=== PATIENT | male | born 1970 | race Caucasian/White ===

== ENCOUNTER 2018-04-28 15:55 | Observation (INO) | payer SELFPAY ==
[2018-04-28] MEDS ORDERED: CLINDAMYCIN 900 MG/D5W RTU 900 MG/50 ML RTUPB IV ONE (18:57)
[2018-04-28] MEDS ORDERED: HYDROMORPHONE HCL INJ/PF 2 MG/ML AMPULE SUBCUT ONE ×2 (18:58→20:02)
[2018-04-28] MEDS ORDERED: ONDANSETRON 4 MG TAB.RAPDIS PO ONE (18:58)
[2018-04-28] MEDS ORDERED: LIDOCAINE 1% INJ (10 MG/ML) 10 ML MDV INJ ONE ×2 (19:02→22:56)
--- NOTE | 2018-04-28 19:03 | ER Document Report ---
ED General - General Mode of Arrival: Ambulatory Information source: Patient TRAVEL OUTSIDE OF THE [place] IN LAST 30 DAYS: No - HPI Patient complains to provider of: Dental pain, jaw swelling Onset: Yesterday Onset/Duration: Gradual, Persistent Quality of pain: Sharp, Stabbing Severity: Severe Pain Level: 5 Associated symptoms: None Exacerbated by: Denies Relieved by: Denies Similar symptoms previously: No Recently seen / treated by doctor: No <JOSÉ LUIS HILL - Last Filed: 04/28/18 23:59> <SIDDHARTH REED - Last Filed: 04/29/18 00:08> - General Chief Complaint: abcess Stated Complaint: TOOTH PAIN Time Seen by Provider: 04/28/18 18:54 - HPI Notes: 47-year-old male coming in today with dental infection and right jaw swelling. Started yesterday with pain in the right lower jaw and is progressed quickly. Patient was given a prescription for clindamycin on the day of onset. Was recently prescribed Flagyl as well. Hydrocodone/APAP combination medication prescribed. Patient here because the swelling and the pain is intolerable. He is not having any trouble tolerating his own secretions or swallowing (JOSÉ LUIS HILL) - Related Data Allergies/Adverse Reactions: No Known Allergies Allergy (Unverified 04/28/18 15:58) Past Medical History - General Information source: Patient - Social History Smoking Status: Current Every Day Smoker Chew tobacco use (# tins/day): No Frequency of alcohol use: None Drug Abuse: None Family History: Reviewed & Not Pertinent Patient has suicidal ideation: No Patient has homicidal ideation: No Renal/ Medical History: Denies: Hx Peritoneal Dialysis Past Surgical History: Reports: Hx Orthopedic Surgery - l knee <JOSÉ LUIS HILL - Last Filed: 04/28/18 23:59> Review of Systems <JOSÉ LUIS HILL - Last Filed: 04/28/18 23:59> - Review of Systems Notes: Constitutional: No fevers. No chills. EENT: No eye redness. No eye pain. No ear pain. No sore throat. Positive for right lower dental pain and right lower jaw swelling Cardiovascular: No chest pain. No palpitations. Respiratory: No cough. No shortness of breath. No respiratory distress. Gastrointestinal: No abdominal pain. No nausea, vomiting, or diarrhea. Genitourinary: Atraumatic. No lesions. No pain. No discharge. Musculoskeletal: Atraumatic. No swelling. No deformities. Skin: No rash or lesions. Lymphatic: No swollen lymph nodes. Neurologic: No headache. No syncope. Psychiatric: No suicidal or homicidal ideation. (JOSÉ LUIS HILL) Physical Exam <JOSÉ LUIS HILL - Last Filed: 04/28/18 23:59> - Vital signs Vitals: Temp Pulse Resp BP Pulse Ox 98.8 F 67 16 150/84 H 96 04/28/18 16:05 04/28/18 16:05 04/28/18 16:05 04/28/18 16:05 04/28/18 16:05 - Notes Notes: Right lower second molar severely decayed. Visible right lower jaw swelling. Question possible fluctuant abscess to the gingiva of the right lower jaw. No trismus. No drooling. No submandibular or sublingual swelling. No dysphonia dyspnea or dysphagia (JOSÉ LUIS HILL) Course - Laboratory Result Diagrams: 04/28/18 20:15 04/28/18 20:15 - Consults dr galarza-hospitalist Time consulted: 23:59 Consulted provider: will see as inpatient - admit to [facility] for dr lala -oral surgery Time consulted: 23:30 Consulted provider: other - dr lala is available to hospitalist for consult if needed <JOSÉ LUIS HILL - Last Filed: 04/28/18 23:59> - Laboratory Result Diagrams: 04/28/18 20:15 04/28/18 20:15 <SIDDHARTH REED - Last Filed: 04/29/18 00:08> - Re-evaluation Re-evalutation: 04/28/18 19:05 I will attempt to incise and drain the abscess. IV clindamycin is being ordered as well as subcutaneous Dilaudid for pain. 04/28/18 20:05 There may have been a small amount of drainage from the incision and drainage p rocedure. All in all, the patient is complaining that the swelling is crossing from the right side of the neck to the left. Given these findings I will go ahead and get lab work and a CT to evaluate for evolving cellulitis. (JOSÉ LUIS HILL) 04/29/18 00:07 I did personally see and examine this patient in conjunction with José Luis Hill the PA who was taking care of this patient with right-sided facial swelling for the past 2 days.. I also do not visualize any discrete abscess after his incision and drainage. Patient does have significant swelling, there is a concern that if the swelling should continue to increase that there might be airway compromise. Patient was discussed with the nurse from the oral surgery practice who agrees that there physicians will be available for consultation as an inpatient if necessary. I agree with admitting this patient to the hosp italist for IV antibiotics at this time. Physical examination does not reveal any pain or tenderness or swelling to the floor of the mouth, no evidence of Taz's angina. (SIDDHARTH REED) - Vital Signs Vital signs: Temp Pulse Resp BP Pulse Ox 98.8 F 67 16 150/84 H 96 04/28/18 16:05 04/28/18 16:05 04/28/18 16:05 04/28/18 16:05 04/28/18 16:05 - Laboratory Laboratory results interpreted by me: 04/28/18 20:15 WBC 14.3 H Lymphocytes % 11.8 L Absolute Neutrophils 10.9 H - Consults [facility] for dr lala -oral surgery Reason for consultation: 04/29/18 00:00 facial swelling possibly odontogenic (JOSÉ LUIS HILL) Procedures - Incision and Drainage Right Lower Face Time completed: 20:04 Type: Simple, Single Anesthetic type: 1% Lidocaine mL's of anesthetic: 4 Blade size: 11 Incision Method: Incision made by scalpel Amount/type of drainage: 3 CC BLOODY/CLOUDY <JOSÉ LUIS HILL - Last Filed: 04/28/18 23:59> - Additional Procedures Inferior alveolar block Additional Procedures: Other - Inferior alveolar block <SIDDHARTH REED - Last Filed: 04/29/18 00:08> - Additional Procedures Inferior alveolar block Notes: 04/29/18 00:06 Landmarks were palpated, right-sided inferior alveolar block was performed using intraoral approach, a 25-gauge inch and a half long needle using a mixture of 1.5 mL's of 1% lidocaine and 1.5 mL of 0.5% bupivacaine were infiltrated without significant pain or any difficulty. No complications. Good relief of pain. (SIDDHARTH REED) Discharge - Discharge Admitting Provider: Hospitalist Unit Admitted: Medical Floor <JOSÉ LUIS HILL - Last Filed: 04/28/18 23:59> <SIDDHARTH REED - Last Filed: 04/29/18 00:08> - Discharge Clinical Impression: Facial swelling, Facial cellulitis Condition: Good Disposition: ADMITTED OBSERVATION
[2018-04-28 20:24] LABS: ABSOLUTE BASOPHILS # (AUTO) 0.1 10^3/uL (0.0-0.2); ABSOLUTE EOSINOPHILS # (AUTO) 0.3 10^3/uL (0.0-0.6); ABSOLUTE LYMPHOCYTES (AUTO) 1.7 10^3/uL (0.5-4.7); ABSOLUTE MONOCYTES (AUTO) 1.3 10^3/uL (0.1-1.4); ABSOLUTE NEUT (AUTO) 10.9 10^3/uL (1.7-8.2); BASOPHILS % (AUTO) 0.9 % (0-2); HEMATOCRIT 43.5 % (37.9-51.0); HEMOGLOBIN 14.9 g/dL (13.5-17.0); LYMPHOCYTES % (AUTO) 11.8 % (13-45); MEAN CORPUSCULAR HEMOGLOBIN 30.8 pg (27.0-33.4); MEAN CORPUSCULAR HGB CONC 34.4 g/dL (32.0-36.0); MEAN CORPUSCULAR VOLUME 90 fl (80-97); MONOCYTES % (AUTO) 9.1 % (3-13); PLATELET COUNT 258 10^3/uL (150-450); RED BLOOD COUNT 4.85 10^6/uL (4.35-5.55); RED CELL DISTRIBUTION WIDTH 13.5 % (11.5-14.0); SEGMENTED NEUTROPHILS % (AUTO) 76.2 % (42-78); TOTAL CELLS COUNTED % (AUTO) 100 %; WHITE BLOOD COUNT 14.3 10^3/uL (4.0-10.5)
--- NOTE | 2018-04-28 21:09 | RADIOLOGY REPORT (SQ) ---
CT NECK CHEST WITH IV CONTRAST HISTORY: Right-sided jaw swelling. COMPARISON: None. TECHNIQUE: CT scan of the neck with IV contrast. This exam was performed according to our departmental dose-optimization program, which includes automated exposure control, adjustment of the mA and/or kV according to patient size and/or use of iterative reconstruction technique. FINDINGS: There is diffuse subcutaneous edema overlying the right lower jaw. No definite focal fluid collection or abscess identified. There is surrounding prominent submental and right cervical chain lymph nodes, likely reactive. There is no cortical erosion or periosteal reaction to suggest acute osteomyelitis. No radiopaque foreign body is identified. The nasopharynx, oropharynx and hypopharynx are normal. No cervical mass or collection is seen. No aerodigestive tract mass is identified. The parotid and submandibular glands are normal. There are multiple subcentimeter hypodense nodules in the left thyroid lobe. The paranasal sinuses and mastoid air cells are clear. The visualized lungs are clear with emphysematous changes at the lung apices. IMPRESSION: 1. Diffuse swelling overlying the right lower jaw with reactive adenopathy, which may represent cellulitis. 2. No abscess or fluid collection. 3. No evidence of acute osteomyelitis.
[2018-04-28 21:19] LABS: ANION GAP 11 (5-19); BLOOD UREA NITROGEN 8 mg/dL (7-20); CALCIUM 9.5 mg/dL (8.4-10.2); CARBON DIOXIDE 26 mmol/L (22-30); CHLORIDE 102 mmol/L (98-107); GLUCOSE 100 mg/dL (75-110); POTASSIUM 4.7 mmol/L (3.6-5.0); SODIUM 138.8 mmol/L (137-145)
[2018-04-28] MEDS ORDERED: BUPIVACAINE HCL 0.5 % INJ/PF 30 ML SDV INJ ONE (22:56)
[2018-04-28] MEDS ORDERED: ACETAMINOPHEN 325 MG TABLET PO PRN (23:59)
[2018-04-28] MEDS ORDERED: IPRATROPIUM/ALBUTEROL 0.5-2.5 MG/3 ML AMPUL NEB PRN (23:59)
[2018-04-29] MEDS ORDERED: KETOROLAC TROMETHAMINE INJ/PF 30 MG/1 ML SDV IV ONE (00:45)
[2018-04-29] MEDS ORDERED: DEXAMETHASONE SOD PHOS INJ 10 MG/1 ML VIAL IV ONE (00:45)
[2018-04-29] MEDS ORDERED: NICOTINE 14 MG/24 HR PATCH.TD24 TD PRN (01:44)
[2018-04-29 03:04] LABS: HEMATOCRIT 43.8 % (37.9-51.0); HEMOGLOBIN 15.2 g/dL (13.5-17.0); MEAN CORPUSCULAR HEMOGLOBIN 30.9 pg (27.0-33.4); MEAN CORPUSCULAR HGB CONC 34.6 g/dL (32.0-36.0); MEAN CORPUSCULAR VOLUME 89 fl (80-97); PLATELET COUNT 235 10^3/uL (150-450); RED CELL DISTRIBUTION WIDTH 13.7 % (11.5-14.0); WHITE BLOOD COUNT 13.1 10^3/uL (4.0-10.5)
[2018-04-29 03:46] LABS: ABSOLUTE LYMPHOCYTES# (MANUAL) 0.7 10^3/uL (0.5-4.7); ABSOLUTE MONOCYTES # (MANUAL) 0.4 10^3/uL (0.1-1.4); ABSOLUTE NEUTROPHILS# (MANUAL) 12.1 10^3/uL (1.7-8.2); BASOPHILS % (MANUAL) 0 % (0-2); EOSINOPHILS % (MANUAL) 0 % (0-6); LYMPHOCYTES % (MANUAL) 5 % (13-45); MONOCYTES % (MANUAL) 3 % (3-13); PLATELET COMMENT ADEQUATE; RBC MORPHOLOGY COMMENT NORMO-CYTIC/CHROMIC; SEGMENTED NEUTROPHILS % (MAN) 92 % (42-78); TOTAL CELLS COUNTED 100; TOXIC GRANULATION SLIGHT; TOXIC VACUOLATION PRESENT
[2018-04-29] MEDS: CLINDAMYCIN 900 MG/D5W RTU 900 MG/50 ML RTUPB IV SCH ×3 (05:58→21:18)
[2018-04-29] MEDS: HEPARIN SOD (PORCINE) 5,000 UNIT/ML 1 ML SYRINGE SUBCUT SCH ×3 (05:58→21:18)
--- NOTE | 2018-04-29 06:03 | PDOC H&P ---
History of Present Illness Admission Date/PCP: 04/29/18 00:11 Patient complains of: Right-sided jaw pain and swelling History of Present Illness: TOOTIE SINGH is a 48 year old male with a past medical history of tobacco, COPD and chronic bronchitis. Presents with 48 hours of right-sided mandibular jaw pain and swelling prompting him to seek evaluation with his dentist who prescribed clindamycin and improved after 24 hours received a prescription for Flagyl and with the persistent worsening he is prompted to seek evaluation in the emergency department where he is found to have significant right mandibular swelling associated with pain without fluctuance and leukocytosis of 14,000. CT negative for abscess. He receives IV clindamycin and a local dental block x2 with significant improvement of pain. he is referred to the hospitalist for admission. Patient denies previous episode recent antibiotic use and is otherwise felt well. Past Medical History Cardiac Medical History: Reports: None Pulmonary Medical History: Reports: Bronchitis, Chronic Obstructive Pulmonary Disease (COPD) EENT Medical History: Reports: None Neurological Medical History: Reports: None Endocrine Medical History: Reports: None Renal/ Medical History: Reports: None Malignancy Medical History: Reports: None GI Medical History: Reports: None Musculoskeltal Medical History: Reports: None Skin Medical History: Reports: None Psychiatric Medical History: Reports: Tobacco Dependency Hematology: Reports: None Infectious Medical History: Reports: None Past Surgical History Past Surgical History: Reports: Orthopedic Surgery - l knee Social History Information Source: Patient, [facility] Lives with: Family Smoking Status: Current Every Day Smoker Drugs: None - Advance Directive Resuscitation Status: Full Code Family History Family History: CAD Parental Family History Reviewed: Yes Children Family History Reviewed: Yes Sibling(s) Family History Reviewed.: Yes Medication/Allergy Allergies/Adverse Reactions: No Known Allergies Allergy (Unverified 04/28/18 15:58) Review of Systems Constitutional: ABSENT: chills, fever(s), headache(s), weight gain, weight loss Eyes: ABSENT: visual disturbances Ears: ABSENT: hearing changes Cardiovascular: ABSENT: chest pain, dyspnea on exertion, edema, orthropnea, palpitations Respiratory: ABSENT: cough, hemoptysis Gastrointestinal: ABSENT: abdominal pain, constipation, diarrhea, hematemesis, hematochezia, nausea, vomiting Genitourinary: ABSENT: dysuria, hematuria Musculoskeletal: ABSENT: joint swelling Integumentary: ABSENT: rash, wounds Neurological: ABSENT: abnormal gait, abnormal speech, confusion, dizziness, focal weakness, syncope Psychiatric: ABSENT: anxiety, depression, homidical ideation, suicidal ideation Endocrine: ABSENT: cold intolerance, heat intolerance, polydipsia, polyuria Hematologic/Lymphatic: ABSENT: easy bleeding, easy bruising Physical Exam Vital Signs: Temp Pulse Resp BP Pulse Ox 98.1 F 73 16 145/80 H 95 04/29/18 02:26 04/29/18 02:26 04/29/18 02:26 04/29/18 02:26 04/29/18 02:26 Intake & Output 04/27/18 04/28/18 04/29/18 11:59 11:59 11:59 Intake Total 50 Balance 50 Weight 60.7 kg General appearance: PRESENT: cooperative, mild distress, thin. ABSENT: no acute distress Head exam: PRESENT: atraumatic, normocephalic, other Head Image: 1 - Indurated erythema and edema Eye exam: PRESENT: conjunctiva pink, EOMI, PERRLA. ABSENT: scleral icterus Ear exam: PRESENT: normal external ear exam Mouth exam: PRESENT: moist, tongue midline Throat exam: PRESENT: post pharyngeal erythema. ABSENT: tonsillar erythema, tonsillar exudate Neck exam: ABSENT: carotid bruit, JVD, lymphadenopathy, thyromegaly Respiratory exam: PRESENT: crackles, prolonged expiratory phas, symmetrical. ABSENT: accessory muscle use Cardiovascular exam: PRESENT: RRR. ABSENT: diastolic murmur, rubs, systolic murmur Pulses: PRESENT: normal dorsalis pedis pul Vascular exam: PRESENT: normal capillary refill GI/Abdominal exam: PRESENT: normal bowel sounds, soft. ABSENT: distended, guarding, mass, organolmegaly, rebound, tenderness Rectal exam: PRESENT: deferred Extremities exam: PRESENT: full ROM. ABSENT: calf tenderness, clubbing, pedal edema Neurological exam: PRESENT: alert, awake, oriented to person, oriented to place, oriented to time, oriented to situation, CN II-XII grossly intact. ABSENT: motor sensory deficit Psychiatric exam: PRESENT: appropriate affect, normal mood. ABSENT: homicidal ideation, suicidal ideation Skin exam: PRESENT: dry, intact, warm. ABSENT: cyanosis, rash Results Laboratory Results: 04/29/18 02:55 04/28/18 20:15 04/28/18 04/28/18 04/29/18 20:15 20:15 02:55 WBC 14.3 H 13.1 H RBC 4.85 4.90 Hgb 14.9 15.2 Hct 43.5 43.8 MCV 90 89 MCH 30.8 30.9 MCHC 34.4 34.6 RDW 13.5 13.7 Plt Count 258 235 Seg Neutrophils % 76.2 Not Reportable Lymphocytes % 11.8 L Not Reportable Monocytes % 9.1 Not Reportable Eosinophils % 2.0 Not Reportable Basophils % 0.9 Not Reportable Absolute Neutrophils 10.9 H Not Reportable Absolute Lymphocytes 1.7 Not Reportable Absolute Monocytes 1.3 Not Reportable Absolute Eosinophils 0.3 Not Reportable Absolute Basophils 0.1 Not Reportable Sodium 138.8 Potassium 4.7 Chloride 102 Carbon Dioxide 26 Anion Gap 11 BUN 8 Creatinine 0.55 Est GFR ( Amer) > 60 Est GFR (Non-Af Amer) > 60 Glucose 100 Calcium 9.5 Impressions: Soft Tissue Neck CT 04/28/18 20:01 IMPRESSION: 1. Diffuse swelling overlying the right lower jaw with reactive adenopathy, which may represent cellulitis. 2. No abscess or fluid collection. 3. No evidence of acute osteomyelitis. Assessment & Plan - Diagnosis (1) Facial cellulitis Is this a current diagnosis for this admission?: Yes Plan: Likely dental related to right lower second molar with poor dentition, no obvious fluctuance or abscess, drooling or coughing. Empiric antibiotics, follow-up CBC blood culture, consider oral surgery if unimproved. (2) Facial swelling Is this a current diagnosis for this admission?: Yes Plan: Secondary to #1 (3) Bronchitis Is this a current diagnosis for this admission?: Yes Plan: Albuterol and Atrovent as needed, incentive spirometry (4) Tobacco dependence Is this a current diagnosis for this admission?: Yes Plan: Tobacco Dependence patient received tobacco cessation counseling and offered nicotine replacement options - Time Time Spent: 30 to 50 Minutes
--- NOTE | 2018-04-29 13:31 | PDOC PROGRESS REPORT ---
Subjective Progress Note for:: 04/29/18 Subjective:: Patient seen resting in bed. His mother is at the bedside. He continues to have right mandible facial swelling. He states the pain is improved from admission. He is able to eat soft foods if he chews on the other side of his mouth. He denies any chest pain, shortness of breath or dyspnea. He denies any nausea, vomiting or abdominal pain. He denies any fever chills or night. He denies any significant arthralgias or myalgias. Remaining review systems are n egative Reason For Visit: FACIAL CELLULITIS Physical Exam Vital Signs: Temp Pulse Resp BP Pulse Ox 98.5 F 78 14 132/79 H 94 04/29/18 07:33 04/29/18 09:41 04/29/18 09:41 04/29/18 07:33 04/29/18 09:41 Intake & Output 04/28/18 04/29/18 04/30/18 06:59 06:59 06:59 Intake Total 150 50 Balance 150 50 Weight 60.7 kg General appearance: PRESENT: no acute distress, well-developed, well-nourished, other - Right mandible swelling Head exam: PRESENT: atraumatic, normocephalic Eye exam: PRESENT: conjunctiva pink, EOMI, PERRLA. ABSENT: scleral icterus Ear exam: PRESENT: normal external ear exam Mouth exam: PRESENT: moist, tongue midline Teeth exam: PRESENT: dental tenderness - right lateral mandible Neck exam: ABSENT: carotid bruit, JVD, lymphadenopathy, thyromegaly Respiratory exam: PRESENT: clear to auscultation shahla. ABSENT: rales, rhonchi, wheezes Cardiovascular exam: PRESENT: RRR. ABSENT: diastolic murmur, rubs, systolic murmur Pulses: PRESENT: normal dorsalis pedis pul Vascular exam: PRESENT: normal capillary refill GI/Abdominal exam: PRESENT: normal bowel sounds, soft. ABSENT: distended, guarding, mass, organolmegaly, rebound, tenderness Rectal exam: PRESENT: deferred Extremities exam: PRESENT: full ROM. ABSENT: calf tenderness, clubbing, pedal edema Neurological exam: PRESENT: alert, awake, oriented to person, oriented to place, oriented to time, oriented to situation, CN II-XII grossly intact. ABSENT: motor sensory deficit Psychiatric exam: PRESENT: appropriate affect, normal mood. ABSENT: homicidal ideation, suicidal ideation Skin exam: PRESENT: dry, intact, warm. ABSENT: cyanosis, rash Results Laboratory Results: 04/29/18 02:55 04/28/18 20:15 04/28/18 04/28/18 04/29/18 20:15 20:15 02:55 WBC 14.3 H 13.1 H RBC 4.85 4.90 Hgb 14.9 15.2 Hct 43.5 43.8 MCV 90 89 MCH 30.8 30.9 MCHC 34.4 34.6 RDW 13.5 13.7 Plt Count 258 235 Seg Neutrophils % 76.2 Not Reportable Lymphocytes % 11.8 L Not Reportable Monocytes % 9.1 Not Reportable Eosinophils % 2.0 Not Reportable Basophils % 0.9 Not Reportable Absolute Neutrophils 10.9 H Not Reportable Absolute Lymphocytes 1.7 Not Reportable Absolute Monocytes 1.3 Not Reportable Absolute Eosinophils 0.3 Not Reportable Absolute Basophils 0.1 Not Reportable Sodium 138.8 Potassium 4.7 Chloride 102 Carbon Dioxide 26 Anion Gap 11 BUN 8 Creatinine 0.55 Est GFR ( Amer) > 60 Est GFR (Non-Af Amer) > 60 Glucose 100 Calcium 9.5 Impressions: Soft Tissue Neck CT 04/28/18 20:01 IMPRESSION: 1. Diffuse swelling overlying the right lower jaw with reactive adenopathy, which may represent cellulitis. 2. No abscess or fluid collection. 3. No evidence of acute osteomyelitis. Assessment & Plan - Diagnosis (1) Facial cellulitis Is this a current diagnosis for this admission?: Yes Plan: Continue IV clindamycin every 8 hours. Toradol 30 mg IV as needed for pain. (2) Facial swelling Is this a current diagnosis for this admission?: Yes Plan: As above in #1. (3) Tobacco dependence Is this a current diagnosis for this admission?: Yes Plan: Counseled - Time Time Spent with patient: 25-34 minutes Total Critical Time (Minutes): 25 Medications reviewed and adjusted accordingly: Yes Anticipated discharge: Home Within: within 48 hours - Inpatient Certification Based on my medical assessment, after consideration of the patient's comorbidities, presenting symptoms, or acuity I expect that the services needed warrant INPATIENT care.: Yes I certify that my determination is in accordance with my understanding of Medicare's requirements for reasonable and necessary INPATIENT services [42 CFR 412.3e].: Yes Medical Necessity: Failure to Improve With Outpatient Therapy, Need for Pain Control, Need for IV Antibiotics
[2018-04-30] MEDS: KETOROLAC TROMETHAMINE INJ/PF 30 MG/1 ML SDV IV PRN ×3 (05:39→17:39)
[2018-04-30] MEDS: CLINDAMYCIN 900 MG/D5W RTU 900 MG/50 ML RTUPB IV SCH ×3 (05:39→21:24)
[2018-04-30] MEDS: HEPARIN SOD (PORCINE) 5,000 UNIT/ML 1 ML SYRINGE SUBCUT SCH ×3 (05:39→21:24)
[2018-04-30 05:42] LABS: ABSOLUTE BASOPHILS # (AUTO) 0.2 10^3/uL (0.0-0.2); ABSOLUTE EOSINOPHILS # (AUTO) 0.2 10^3/uL (0.0-0.6); ABSOLUTE MONOCYTES (AUTO) 1.6 10^3/uL (0.1-1.4); ABSOLUTE NEUT (AUTO) 7.4 10^3/uL (1.7-8.2); BASOPHILS % (AUTO) 1.5 % (0-2); EOSINOPHILS % (AUTO) 1.8 % (0-6); HEMATOCRIT 43.8 % (37.9-51.0); HEMOGLOBIN 15.2 g/dL (13.5-17.0); LYMPHOCYTES % (AUTO) 24.3 % (13-45); MEAN CORPUSCULAR HEMOGLOBIN 31.2 pg (27.0-33.4); MEAN CORPUSCULAR HGB CONC 34.7 g/dL (32.0-36.0); MEAN CORPUSCULAR VOLUME 90 fl (80-97); PLATELET COUNT 288 10^3/uL (150-450); RED BLOOD COUNT 4.87 10^6/uL (4.35-5.55); RED CELL DISTRIBUTION WIDTH 13.9 % (11.5-14.0); SEGMENTED NEUTROPHILS % (AUTO) 59.4 % (42-78); TOTAL CELLS COUNTED % (AUTO) 100 %; WHITE BLOOD COUNT 12.4 10^3/uL (4.0-10.5)
[2018-04-30 06:02] LABS: ANION GAP 6 (5-19); BLOOD UREA NITROGEN 14 mg/dL (7-20); CARBON DIOXIDE 32 mmol/L (22-30); CHLORIDE 103 mmol/L (98-107); GLUCOSE 94 mg/dL (75-110); SODIUM 141.2 mmol/L (137-145)
[2018-04-30 06:05] LABS: POTASSIUM 6.3 mmol/L (3.6-5.0)
[2018-04-30] MEDS ORDERED: CALCIUM GLUCONATE 1,000 MG in DEXTROSE 5%-WATER 50 ML IV ONE (06:15)
[2018-04-30] MEDS ORDERED: LACTULOSE SYRUP 20 GM/30 ML UDCUP PO ONE (06:16)
[2018-04-30] MEDS ORDERED: ALBUTEROL SULFATE 0.083% NEB 2.5 MG/3 ML AMPUL NEB ONE (06:30)
[2018-04-30] MEDS: OXYCODONE HCL IR 5 MG TABLET PO PRN ×2 (06:31→14:44)
[2018-04-30] MEDS ORDERED: CALCIUM GLUCONATE 1000 MG/10 ML INJ IV ONE (06:42)
[2018-04-30 07:32] LABS: ANION GAP 9 (5-19); BLOOD UREA NITROGEN 15 mg/dL (7-20); CALCIUM 9.9 mg/dL (8.4-10.2); CARBON DIOXIDE 29 mmol/L (22-30); CHLORIDE 102 mmol/L (98-107); GLUCOSE 107 mg/dL (75-110); POTASSIUM 5.6 mmol/L (3.6-5.0); SODIUM 140.2 mmol/L (137-145)
[2018-04-30] MEDS: IPRATROPIUM/ALBUTEROL 0.5-2.5 MG/3 ML AMPUL NEB SCH ×2 (08:50→19:19)
--- NOTE | 2018-04-30 14:11 | PDOC PROGRESS REPORT ---
Subjective Progress Note for:: 04/30/18 Subjective:: Patient seen resting in bed. His mother is at the bedside. He continues to have right mandible facial swelling, is improved from yesterday. He states the pain is improved from admission. He is able to eat soft foods if he chews on the other side of his mouth. He denies any chest pain, shortness of breath or dyspnea. He denies any nausea, vomiting or abdominal pain. He denies any fever chills or night. He denies any significant arthralgias or myalgias. Remaining review systems are negative Reason For Visit: FACIAL CELLULITIS Physical Exam Vital Signs: Temp Pulse Resp BP Pulse Ox 97.5 F 60 14 119/72 95 04/30/18 08:01 04/30/18 08:50 04/30/18 08:50 04/30/18 08:01 04/30/18 08:50 Intake & Output 04/29/18 04/30/18 05/01/18 06:59 06:59 06:59 Intake Total 150 1503 110 Balance 150 1503 110 Weight 60.7 kg 61 kg General appearance: PRESENT: no acute distress, well-developed, well-nourished, other - Right mandibular swelling Head exam: PRESENT: atraumatic, normocephalic Eye exam: PRESENT: conjunctiva pink, EOMI, PERRLA. ABSENT: scleral icterus Ear exam: PRESENT: normal external ear exam Mouth exam: PRESENT: moist, neck supple, tongue midline Teeth exam: PRESENT: dental tenderness - Swelling along right lower mandible there is no fluctuance noted. This is improved from yesterday. Continues to be tender but not nearly as painful as it was. Neck exam: ABSENT: carotid bruit, JVD, lymphadenopathy, thyromegaly Respiratory exam: PRESENT: clear to auscultation shahla. ABSENT: rales, rhonchi, wheezes Cardiovascular exam: PRESENT: RRR. ABSENT: diastolic murmur, rubs, systolic murmur Pulses: PRESENT: normal dorsalis pedis pul Vascular exam: PRESENT: normal capillary refill GI/Abdominal exam: PRESENT: normal bowel sounds, soft. ABSENT: distended, guarding, mass, organolmegaly, rebound, tenderness Rectal exam: PRESENT: deferred Extremities exam: PRESENT: full ROM. ABSENT: calf tenderness, clubbing, pedal edema Musculoskeletal exam: PRESENT: ambulatory, full ROM, normal inspection Neurological exam: PRESENT: alert, awake, oriented to person, oriented to place, oriented to time, oriented to situation, CN II-XII grossly intact. ABSENT: motor sensory deficit Psychiatric exam: PRESENT: appropriate affect, normal mood. ABSENT: homicidal ideation, suicidal ideation Skin exam: PRESENT: dry, intact, warm. ABSENT: cyanosis, rash Results Laboratory Results: 04/30/18 05:11 04/30/18 06:50 04/30/18 04/30/18 04/30/18 05:11 05:11 06:50 WBC 12.4 H RBC 4.87 Hgb 15.2 Hct 43.8 MCV 90 MCH 31.2 MCHC 34.7 RDW 13.9 Plt Count 288 Seg Neutrophils % 59.4 Lymphocytes % 24.3 Monocytes % 13.0 Eosinophils % 1.8 Basophils % 1.5 Absolute Neutrophils 7.4 Absolute Lymphocytes 3.0 Absolute Monocytes 1.6 H Absolute Eosinophils 0.2 Absolute Basophils 0.2 Sodium 141.2 140.2 Potassium 6.3 H* 5.6 H Chloride 103 102 Carbon Dioxide 32 H 29 Anion Gap 6 9 BUN 14 15 Creatinine 0.76 0.68 Est GFR ( Amer) > 60 > 60 Est GFR (Non-Af Amer) > 60 > 60 Glucose 94 107 Calcium 10.0 9.9 Impressions: Soft Tissue Neck CT 04/28/18 20:01 IMPRESSION: 1. Diffuse swelling overlying the right lower jaw with reactive adenopathy, which may represent cellulitis. 2. No abscess or fluid collection. 3. No evidence of acute osteomyelitis. Assessment & Plan - Diagnosis (1) Facial cellulitis Is this a current diagnosis for this admission?: Yes (2) Facial swelling Is this a current diagnosis for this admission?: Yes (3) Tobacco dependence Is this a current diagnosis for this admission?: Yes (4) Hyperkalemia Is this a current diagnosis for this admission?: Yes Plan: She was found to have potassium was 6.3 this a.m. His creatinine was normal. He had normal potassium supplements. EKG was obtained which showed T wave peaking in the lateral leads. He was given lactulose, D50 and insulin. Repeat potassium was 5.6. He is drinking well he had several bowel movements since the lactulose. - Time Time Spent with patient: 35 or more minutes Total Critical Time (Minutes): 25 Medications reviewed and adjusted accordingly: Yes Anticipated discharge: Home Within: within 24 hours
--- NOTE | 2018-04-30 22:48 | EKG REPORT ---
SEVERITY:- NORMAL ECG - SINUS RHYTHM : Confirmed by: Lila Quigley 30-Apr-2018 22:48:19
--- NOTE | 2018-04-30 22:49 | EKG REPORT ---
SEVERITY:- NORMAL ECG - SINUS RHYTHM : Confirmed by: Lila Quigley 30-Apr-2018 22:48:24
[2018-05-01] MEDS: HEPARIN SOD (PORCINE) 5,000 UNIT/ML 1 ML SYRINGE SUBCUT SCH (05:17)
[2018-05-01] MEDS: CLINDAMYCIN 900 MG/D5W RTU 900 MG/50 ML RTUPB IV SCH (05:17)
[2018-05-01] MEDS: IPRATROPIUM/ALBUTEROL 0.5-2.5 MG/3 ML AMPUL NEB SCH (07:44)
[2018-05-01 10:24] VITALS: BP 126/70
[2018-05-01 13:21] LABS: HEMATOCRIT 43.8 % (37.9-51.0); HEMOGLOBIN 15.3 g/dL (13.5-17.0); MEAN CORPUSCULAR HEMOGLOBIN 31.5 pg (27.0-33.4); MEAN CORPUSCULAR HGB CONC 34.9 g/dL (32.0-36.0); MEAN CORPUSCULAR VOLUME 90 fl (80-97); PLATELET COUNT 300 10^3/uL (150-450); RED BLOOD COUNT 4.85 10^6/uL (4.35-5.55); RED CELL DISTRIBUTION WIDTH 13.6 % (11.5-14.0); WHITE BLOOD COUNT 8.6 10^3/uL (4.0-10.5)
[2018-05-01 13:50] LABS: ABSOLUTE LYMPHOCYTES# (MANUAL) 1.8 10^3/uL (0.5-4.7); ABSOLUTE MONOCYTES # (MANUAL) 0.8 10^3/uL (0.1-1.4); ABSOLUTE NEUTROPHILS# (MANUAL) 5.8 10^3/uL (1.7-8.2); BAND NEUTROPHILS % (MANUAL) 1 % (3-5); BASOPHILS % (MANUAL) 2 % (0-2); EOSINOPHILS % (MANUAL) 1 % (0-6); LYMPHOCYTES % (MANUAL) 17 % (13-45); MONOCYTES % (MANUAL) 9 % (3-13); SEGMENTED NEUTROPHILS % (MAN) 66 % (42-78); TOTAL CELLS COUNTED 100
[2018-05-01 13:52] LABS: BURR CELLS SLIGHT; OVALOCYTES SLIGHT; PLATELET COMMENT ADEQUATE; POIKILOCYTOSIS SLIGHT
[2018-05-01] MEDS ORDERED: SODIUM POLYSTYRENE SULFONATE 15 GM/60 ML PO ONE ×2 (14:30→15:00)
--- NOTE | 2018-05-01 15:35 | PDOC DISCHARGE SUMMARY ---
General - Admit/Disc Date/PCP Admission Date/Primary Care Provider: 04/29/18 00:11 Discharge Date: 05/01/18 - Discharge Diagnosis (1) Facial cellulitis Is this a current diagnosis for this admission?: Yes Summary: 05/01/2018-patient was admitted with right-sided facial cellulitis CT negative for abscess he was treated with clindamycin afebrile through the hospital course. He is expressing desire to go home today. Blood cultures are negative. He is going home on clindamycin 300 mg p.o. twice daily for 1 week he was strongly advised to follow-up with primary care physician in 1 week and also with his dentist in 3-5 days. (2) Hyperkalemia Is this a current diagnosis for this admission?: Yes Summary: 05/01/2018-patient came in with potassium level 6.3 it was improved to 5.6 after treatment. This morning is 5.3 he received Kayexalate 60 g 1 dose prior to discharge he is expressing desire to go home and explained to him that he needs to stay at least one day to check his potassium levels again tomorrow but he understood the risks in leaving the hospital and decided to go home today. (3) Tobacco dependence Is this a current diagnosis for this admission?: No Summary: 05/01/2018-patient has history of chronic smoking smoking counseling was provided for more than 10 minutes. Strongly advised to quit smoking. - Additional Information Resuscitation Status: Full Code Discharge Diet: As Tolerated Discharge Activity: Activity As Tolerated, Balance Activity w/Rest Prescriptions: Clindamycin HCl [Cleocin 300 mg Capsule] 300 mg PO BID #14 capsule Home Medications: Clindamycin HCl [Cleocin 300 mg Capsule] 300 mg PO BID #14 capsule 05/01/18 History of Present Illness History of Present Illness: TOOTIE SINGH is a 48 year old male 48 year old male with a past medical history of tobacco, COPD and chronic bronchitis. Presents with 48 hours of right-sided mandibular jaw pain and swelling prompting him to seek evaluation with his dentist who prescribed clindamycin and improved after 24 hours received a prescription for Flagyl and with the persistent worsening he is prompted to seek evaluation in the emergency department where he is found to have significant right mandibular swelling associated with pain without fluctuance and leukocytosis of 14,000. CT negative for abscess. He receives IV clindamycin and a local dental block x2 with sign ificant improvement of pain. he is referred to the hospitalist for admission. Patient denies previous episode recent antibiotic use and is otherwise felt well. Physical Exam Vital Signs: Temp Pulse Resp BP Pulse Ox 97.7 F 63 12 126/70 H 96 05/01/18 10:22 05/01/18 13:58 05/01/18 10:22 05/01/18 10:22 05/01/18 10:22 Intake & Output 04/30/18 05/01/18 05/02/18 06:59 06:59 06:59 Intake Total 1503 998 Balance 1503 998 Weight 61 kg 62.1 kg General appearance: PRESENT: no acute distress Head exam: PRESENT: atraumatic Eye exam: PRESENT: PERRLA Mouth exam: PRESENT: moist, tongue midline Neck exam: ABSENT: carotid bruit, JVD, lymphadenopathy, thyromegaly Respiratory exam: PRESENT: clear to auscultation shahla. ABSENT: rales, rhonchi, wheezes Cardiovascular exam: PRESENT: RRR. ABSENT: diastolic murmur, rubs, systolic murmur Vascular exam: PRESENT: normal capillary refill Extremities exam: PRESENT: full ROM. ABSENT: calf tenderness, clubbing, pedal edema Neurological exam: PRESENT: alert, awake, oriented to person, oriented to place, oriented to time, oriented to situation, CN II-XII grossly intact. ABSENT: motor sensory deficit Psychiatric exam: PRESENT: appropriate affect, normal mood. ABSENT: homicidal ideation, suicidal ideation Results Laboratory Results: 05/01/18 12:47 05/01/18 12:47 05/01/18 05/01/18 05/01/18 12:47 12:47 12:47 WBC 8.6 RBC 4.85 Hgb 15.3 Hct 43.8 MCV 90 MCH 31.5 MCHC 34.9 RDW 13.6 Plt Count 300 Seg Neutrophils % Not Reportable Lymphocytes % Not Reportable Monocytes % Not Reportable Eosinophils % Not Reportable Basophils % Not Reportable Absolute Neutrophils Not Reportable Absolute Lymphocytes Not Reportable Absolute Monocytes Not Reportable Absolute Eosinophils Not Reportable Absolute Basophils Not Reportable Potassium 5.3 H Magnesium 1.8 Impressions: Soft Tissue Neck CT 04/28/18 20:01 IMPRESSION: 1. Diffuse swelling overlying the right lower jaw with reactive adenopathy, which may represent cellulitis. 2. No abscess or fluid collection. 3. No evidence of acute osteomyelitis. Qualifiers - * PATIENT BEING DISCHARGED WITH ANY OF THE FOLLOWING DIAGNOSIS: No VTE patient discharged on overlapping Therapy?: No
== END 2018-05-01 14:42 | disposition home or self-care (01) ==
LOC: ER 15:55 → EH 04-29 00:11 → 4N 04-29 02:00
PROVIDERS: ADMIT Internal Medicine; ATTEND Internal Medicine
PROC: 0H91XZZ Drainage of Face Skin, External Approach (ICD-10-PCS; 2018-04-28)
PROC: 3E0T3BZ Introduction of Anesthetic Agent into Peripheral Nerves and Plexi, Percutaneous Approach (ICD-10-PCS; 2018-04-28)
PROC: HZ31ZZZ Individual Counseling for Substance Abuse Treatment, Behavioral (ICD-10-PCS; principal; 2018-05-01)
DX: L03.211 Cellulitis of face (principal); E87.5 Hyperkalemia; K02.9 Dental caries, unspecified; F17.200 Nicotine dependence, unspecified, uncomplicated; D72.829 Elevated white blood cell count, unspecified; J44.9 Chronic obstructive pulmonary disease, unspecified
CPT/HCPCS: 99407; 99284; 96372; 96375; 96365; 36415 ×4; 87040; 83735; 84132; 85025 ×4; 80048 ×2; 70491; 93005; 93010; 94640 ×3; 10060; 64402; J3490; J0610; J1644 ×3; S0119; J1885 ×2; J1170; J1100; J7620 ×2; G0378